=== PATIENT | male | born 1985 | race African-American/Black ===

== ENCOUNTER 2020-08-18 10:42 | Emergency (ER) | payer OTHER ==
[~2020-08-18] VITALS: Ht 175.3 cm; Wt 104.0 kg
[2020-08-18] MEDS ORDERED: ATOR10TA69 PO (10:52)
[2020-08-18] MEDS ORDERED: FISH GT (10:52)
[2020-08-18] MEDS ORDERED: ASPI-1497 PO (10:52)
[2020-08-18] MEDS ORDERED: ONDANSETRON HCL 4MG/2ML INJ IV STA (11:05)
[2020-08-18] MEDS ORDERED: MORPHINE SULFATE 4 MG/ML CPJ (NOT FOR IM USE) IV STA (11:05)
[2020-08-18] MEDS ORDERED: ASPIRIN 81MG TABLET PO ONE (11:15)
[2020-08-18] MEDS ORDERED: NITROGLYCERIN OINT 1GM/INCH UDPKT TD ONE (11:15)
[2020-08-18] MEDS ORDERED: SODIUM CHLORIDE 0.9% 1,000 ML IV ONE (11:15)
[2020-08-18 11:52] LABS: BASOPHILS % 0.9 % (0.0-2.0); EOSINOPHILS % 2.2 % (0.0-5.0); HEMATOCRIT. 54.1 % (42.0-52.0); HEMOGLOBIN. 18.3 g/dL (14.0-18.0); LYMPHOCYTES % 36.7 % (20.0-50.0); MEAN CORPUSCULAR HEMOGLOBIN 29.8 pg (28.0-32.0); MEAN PLATELET VOLUME 8.9 fl (7.4-10.4); MONOCYTES % 9.8 % (2.0-8.0); NEUTROPHILS % 50.4 % (40.0-76.0); PLATELET 227 x1000/uL (130-400); RED BLOOD CELL COUNT 6.15 mill/uL (4.7-6.1); RED CELL DISTRIBUTION WIDTH 13.5 % (11.6-14.6)
[2020-08-18 12:01] LABS: CHLORIDE 105 mEq/L (98-107)
[2020-08-18 12:08] LABS: ETHANOL BLOOD < 10 mg/dL
[2020-08-18] MEDS ORDERED: AMLODIPINE 5MG TABLET PO SCH (12:15)
[2020-08-18 12:51] LABS: CLARITY URINE CLEAR (CLEAR); COLOR URINE YELLOW (YELLOW); KETONES URINE NEGATIVE (NEGATIVE); LEUKOCYTE ESTERASE URINE NEGATIVE (NEGATIVE); NITRITE URINE NEGATIVE (NEGATIVE); OCCULT BLOOD URINE NEGATIVE (NEGATIVE); PH URINE 5.5 (4.5-8.0); PROTEIN URINE NEGATIVE (NEGATIVE); SPECIFIC GRAVITY URINE 1.011 (1.005-1.030); UROBILINOGEN URINE 0.2 E.U./dL (0.2-1.0)
[2020-08-18 13:03] LABS: *AMPHETAMINES SCREEN URINE NEGATIVE (NEGATIVE); *BARBITURATES SCREEN URINE NEGATIVE (NEGATIVE); *COCAINE SCREEN URINE NEGATIVE (NEGATIVE); METHADONE URINE SCREEN NEGATIVE (NEGATIVE); OPIATES URINE SCREEN PRESUMTIVE POSITIVE (NEGATIVE); PHENCYCLIDINE URINE SCREEN NEGATIVE (NEGATIVE)
[2020-08-18 13:04] LABS: CANNABINOID URINE SCREEN NEGATIVE (NEGATIVE)
[2020-08-18 13:06] LABS: *BENZODIAZEPINES SCREEN URINE NEGATIVE (NEGATIVE)
[2020-08-18 13:51] LABS: CREATINE KINASE 117 IU/L (39-308)
[2020-08-18 14:47] LABS: BASOPHILS % 0.8 % (0.0-2.0); HEMATOCRIT. 53.4 % (42.0-52.0); HEMOGLOBIN. 17.8 g/dL (14.0-18.0); LYMPHOCYTES % 40.3 % (20.0-50.0); MEAN CORPUSCULAR HEMOGLOBIN 29.1 pg (28.0-32.0); MEAN CORPUSCULAR VOLUME 87.2 fL (80.0-94.0); MEAN PLATELET VOLUME 8.7 fl (7.4-10.4); MONOCYTES % 7.9 % (2.0-8.0); PLATELET 245 x1000/uL (130-400); RED BLOOD CELL COUNT 6.12 mill/uL (4.7-6.1); RED CELL DISTRIBUTION WIDTH 13.4 % (11.6-14.6)
[2020-08-18 14:57] LABS: HEPATITIS A AB IGM NEGATIVE (NEGATIVE)
[2020-08-18 15:31] LABS: HEPATITIS B SURFACE ANTIGEN REACTIVE PEND CONFIR
[2020-08-18 16:31] VITALS: BP 125/92
== END 2020-08-18 16:41 | disposition left against medical advice (07) ==
LOC: ER 11:28 → EDBEDREQTM 15:10 → EDBEDREQ 15:10 → CANBEDREQ 16:41 → ER 16:41
DX: R07.89 Other chest pain (principal); I10 Essential (primary) hypertension; E78.5 Hyperlipidemia, unspecified
CPT/HCPCS: 36415; 71045; 76700; 80053; 80305; 80320; 81003; 82550; 83690; 83880; 84484; 85025; 86705; 86709; 86803; 87340; 93005; 96361; 96374; 99285; J2270; J7030; Z7610; G0480